=== PATIENT | female | born 2000 | race Hispanic/Latino ===

== ENCOUNTER → 2024-11-18 | Day surgery (SDC) | payer BC, OTHER ==
[~2024-11-18] MED LIST: DEXAMETHASONE SOD PHOS INJ 4 MG/ML SDV ONE; FAMOTIDINE 20 MG/2 ML VIAL IV ONE; FENTANYL CITRATE/PF 100MCG/2 ML INJ ONE; KETOROLAC TROMETHAMINE 30 MG/ML VIAL ONE; LIDOCAINE HCL 2% LOCAL INJ 5 ML SDV VIAL INJ ONE; MIDAZOLAM HCL 2 MG/2 ML VIAL ONE; ONDANSETRON HCL INJ 2MG/ML 2ML 2 MG/ML VIAL ONE; PROPOFOL IV EMULSION 10 MG/ML 20 ML VIAL ONE; SLYND4 MG PO
[2024-11-18] MEDS: CEFAZOLIN SODIUM 2 GM ONE (06:00)
[2024-11-18] MEDS: LACTATED RINGER'S 1,000 ML ONE (06:02)
[2024-11-18] MEDS: ONDANSETRON HCL INJ 2MG/ML 2ML 2 MG/ML VIAL ONE (09:01)
[2024-11-18 09:50] VITALS: BP 123/78; PULSE 62; RESP 18; O2SAT 100
== END | disposition home or self-care (01) ==
LOC: OR 05:26
PROVIDERS: ATTEND Orthopaedic Surgery
DX: S83.251A Bucket-handle tear of lateral meniscus, current injury, right knee, initial encounter (principal); E66.01 Morbid (severe) obesity due to excess calories; F41.9 Anxiety disorder, unspecified; X58.XXXA Exposure to other specified factors, initial encounter; Z68.41 Body mass index [BMI] 40.0-44.9, adult
CPT/HCPCS: 29881; 81025; J1100; J1308; J1885; J2003; J2250; J2405; J2704; J3010; J7121